=== PATIENT | male | born 1960 | race Caucasian/White ===

== ENCOUNTER 2020-02-15 07:51 | Day surgery (SDC) | payer MEDICARE ==
[~2020-02-15 07:51] MED LIST: ASPIRIN81 MG PO; CLOBAZAM20 MG PO; DEPAKOTE250 MG PO; KEPPRA XR500 MG PO; KEPPRA1000 MG PO; LANTUS100 UNIT/M SC; LEVOTHYROXIN88 MC1 PO; METO PO; PERCOCET 10/31 COMBO PO; PROTONIX40 M4 PO; ZOFRAN4 MG/TAB PO
[2020-02-15] MEDS ORDERED: NORCO1 TA2 PO (09:34)
[2020-02-15] MEDS ORDERED: CARAFATE1 GM PO (11:11)
[2020-02-15 11:22] VITALS: BP 94/61
== END 2020-02-15 11:40 | disposition home or self-care (01) ==
LOC: ENDO 07:51 → ORM 11:15 → ENDO 11:40
PROVIDERS: ATTEND Surgery
PROC: 0JPT3WZ Removal of Totally Implantable Vascular Access Device from Trunk Subcutaneous Tissue and Fascia, Percutaneous Approach (ICD-10-PCS; principal; 2020-02-15)
PROC: 02PY33Z Removal of Infusion Device from Great Vessel, Percutaneous Approach (ICD-10-PCS; 2020-02-15)
PROC: 0DJ08ZZ Inspection of Upper Intestinal Tract, Via Natural or Artificial Opening Endoscopic (ICD-10-PCS; 2020-02-15)
PROC: 0D2DXUZ Change Feeding Device in Lower Intestinal Tract, External Approach (ICD-10-PCS; 2020-02-15)
PROC: 0DJD8ZZ Inspection of Lower Intestinal Tract, Via Natural or Artificial Opening Endoscopic (ICD-10-PCS; 2020-02-15)
DX: K94.13 Enterostomy malfunction (principal); K31.84 Gastroparesis; D64.9 Anemia, unspecified; K25.4 Chronic or unspecified gastric ulcer with hemorrhage; K31.1 Adult hypertrophic pyloric stenosis; Z45.2 Encounter for adjustment and management of vascular access device; K86.1 Other chronic pancreatitis; G40.909 Epilepsy, unspecified, not intractable, without status epilepticus; Y83.3 Surgical operation with formation of external stoma as the cause of abnormal reaction of the patient, or of later complication, without mention of misadventure at the time of the procedure; Z85.46 Personal history of malignant neoplasm of prostate; Z87.891 Personal history of nicotine dependence; Z85.51 Personal history of malignant neoplasm of bladder; Z20.828 Contact with and (suspected) exposure to other viral communicable diseases
CPT/HCPCS: J0131

== ENCOUNTER 2020-10-10 06:46 | Day surgery (SDC) | payer MEDICARE ==
[~2020-10-10] VITALS: Ht 177.8 cm; Wt 83.5 kg
[~2020-10-10 06:46] MED LIST changes: +CARAFATE1 GM PO; +FIBER SELECT GUMMIES PO; +HYDROCODONE BIT1 TA7 PO; +IRON 100 PLUS PO; +LANTUS100 UNIT SC; -LANTUS100 UNIT/M SC; +NORCO1 TA2 PO; +[UNRECOGNIZED DRUG - OTHER] PO
[2020-10-10 08:52] VITALS: BP 108/64
== END 2020-10-10 09:06 | disposition home or self-care (01) ==
LOC: ENDO 06:46 → ORM 07:30 → ENDO 08:00
PROVIDERS: ATTEND Surgery
PROC: 0DBF8ZX Excision of Right Large Intestine, Via Natural or Artificial Opening Endoscopic, Diagnostic (ICD-10-PCS; principal; 2020-10-10)
PROC: 3E0H8KZ Introduction of Other Diagnostic Substance into Lower GI, Via Natural or Artificial Opening Endoscopic (ICD-10-PCS; 2020-10-10)
DX: K59.00 Constipation, unspecified (principal); D12.2 Benign neoplasm of ascending colon; K31.84 Gastroparesis; G40.909 Epilepsy, unspecified, not intractable, without status epilepticus; Z85.51 Personal history of malignant neoplasm of bladder; Z85.46 Personal history of malignant neoplasm of prostate; Z87.891 Personal history of nicotine dependence

== ENCOUNTER 2020-11-11 01:31 | Inpatient (IN) | payer MEDICARE ==
[~2020-11-11] VITALS: Ht 177.8 cm; Wt 84.0 kg
--- NOTE | 2020-11-11 01:31 | NUR ---
A/O M WITH ABD PAIN "ALL OVER" with quality of ' all you sais sharp dull,achy"
[2020-11-11 02:29] LABS: HEMATOCRIT 50.8 % (39.0-50.0); HEMOGLOBIN 16.7 g/dl (14.0-18.0); IMMATURE GRANULOCYTES 0.2 % (0.0-5.0); MEAN CORPUSCULAR HGB 28.9 pG CALC (26.0-32.0); MEAN CORPUSCULAR HGB CONC 32.9 g/dL CAL (32.0-36.0); NEUT# 13.29 thou/uL (1.82-7.42); RED BLOOD COUNT 5.77 mill/uL (4.70-6.10); RED CELL DISTRI WIDTH 15.8 % (11.5-15.5)
[2020-11-11 02:44] LABS: ALBUMIN 4.3 g/dL (3.2-5.0); ALKALINE PHOSPHATASE 260 u/l (38-126); AMYLASE 382 u/l (30-110); ANION GAP 16 (6-22 (CALC)); BILIRUBIN, TOTAL 0.4 mg/dL (0.0-1.4); BUN 28 mg/dL (8-23); BUN/CREATININE RATIO 25 (12-20 (CALC)); CARBON DIOXIDE 25 mmol/l (22-30); CHLORIDE 102 mmol/l (95-108); CREATININE 1.1 mg/dL (0.7-1.3); GFR > 60 ML/MIN (>=60 (CALC)); GFR FOR AFR.AMER. > 60 ML/MIN (>=60 (CALC)); POTASSIUM 4.4 mmol/l (3.5-5.1); SGOT/AST 40 u/l (19-48); SODIUM 138 mmol/l (137-146); TOTAL PROTEIN 7.9 g/dL (6.3-8.2)
--- NOTE | 2020-11-11 02:48 | NUR ---
PT IS DOZING AND IN NAD APPEARS COMFORTABEL W/P/D SKIN NO N/V
[2020-11-11 02:53] LABS: LIPASE 2363 u/l (23-300)
[2020-11-11] MEDS ORDERED: MIRALAX17 GM (02:54)
--- NOTE | 2020-11-11 03:55 | NUR ---
15F MARCIAL CAATH INSERTED AND 400CC CLOUDY YELLOW URINE DRAINS PT TOLERATED SPEC TO LAB
[2020-11-11 04:05] LABS: URINE BILIRUBIN - DIPSTICK NEGATIVE (NEGATIVE); URINE BLOOD DIPSTICK SMALL (NEGATIVE); URINE COLOR YELLOW; URINE GLUCOSE - DIPSTICK 500 mg/dL (NEGATIVE); URINE KETONE NEGATIVE (NEGATIVE); URINE UROBILINOGEN - DIPSTICK 0.2 E.U./dL (0.2)
[2020-11-11 04:09] LABS: URINE LEUK ESTERASE MODERATE (NEGATIVE); URINE NITRITE - DIPSTICK POSITIVE (Negative)
[2020-11-11 04:10] LABS: URINE PROTEIN - DIPSTICK NEGATIVE (NEG-TRACE); URINE WBC >100 WBC/hpf (0-5)
[2020-11-11 04:11] LABS: URINE BACTERIA MANY hpf; URINE EPITHELIAL CELLS MODERATE EPI/hpf (0-FEW)
--- NOTE | 2020-11-11 04:33 | NUR ---
PT REMEDICATED FOR CONTINUING ABD PAIN W/P;D SKIN NO N/V
--- NOTE | 2020-11-11 05:35 | NUR ---
W/P/D SKIN NO N/V NASAL SWAB SPEC COLLECTED.PT TOLERATED NO C/O PAIN
--- NOTE | 2020-11-11 06:55 | NUR ---
REPORT RECEIVED FROM KAYLA KNOWLES.
--- NOTE | 2020-11-11 08:05 | NUR ---
PT RESTING, AWAITING ADMISSION. STABLE ON MONITOR. AT BEDSIDE. ITEMS AND CALL LIGHT WITHIN REACH.
--- NOTE | 2020-11-11 08:28 | NUR ---
REPORT GIVEN TO KATHY ON MEDR.
--- NOTE | 2020-11-11 08:37 | NUR ---
PATIENT CAME FROM ER VIA STRECHTER BY AUGUST . MANAGER OF ORGANIZATIONAL DEVELOPMENT IN ROOM TO OBTAIN VS. CALL LIGHT IN REACH.
[2020-11-11 08:40] VITALS: BP 146/71
--- NOTE | 2020-11-11 11:50 | NUR ---
PATIENT IS RESTING IN BED. ASSESSMENT DONE. PATIENT IS ALERT AND ORIENT X3 BUT FORGETFUL AT TIMES. RESPS EVEN AND UNLABORED. PATIENT HAS A FEEDING TUBE. STATED THAT PATIENT TAKE MEDICATION BY MOUTH WITH SMALL SIPS OF WATER. SEIZURES PRECAUTIONS IN PLACE. IVF INFUSING WELL. MARCIAL IS PATIENT WITH YELLOW URINE. SAFETY PRECAUTIONS REINFORCED AND CALL LIGHT IN REACH.
[2020-11-11 15:08] VITALS: BP 135/72
--- NOTE | 2020-11-11 15:22 | NUR ---
PATIENT IS RESTING IN BED WITH NO DISTRESS NOTED. PATIENT DENIES NEEDS AT THIS TIME. CALL LIGHT IN REACH.
[2020-11-11 19:00] VITALS: BP 136/76
--- NOTE | 2020-11-11 19:41 | NUR ---
PT MEDICATED ORDERS PROVIDE. NO S/O DISTRESS AT THIS TIME. ASSESSMENT COMPLETED AT THIS TIME. PT C/O PAIN 8/10 ON PAIN SCALE AND MILD NAUSEA. PT HAS BEEN MEDICATED FOR PAIN, WILL MEDICATE WHEN ORDERS ALLOW. CALL LIGHT IS IN HAND AND PT ADVISED TO CALL NEEDS ARISE, VERBALIZED UNDERSTANDING.
--- NOTE | 2020-11-11 20:52 | NUR ---
PT MEDICATED ORDERS PROVIDE. HE WAS ABLE TO TAKE PO MEDICATIONS WITH MINIMAL SIPS OF WATER, STATES THAT IS HOW HE TAKES THEM AT HOME ALTHOUGH HE HAS PEG TUBE. PT TOLERATED SWALLOWING WELL. DENIES ANY OTHER NEEDS OF COMFORT MEASURES. INSTRUCTED HIM TO CALL ANY NEEDS ARISE, VERBALIZED UNDERSTANDING.
--- NOTE | 2020-11-11 21:36 | NUR ---
PHYS ORDERS WERE PLACED MAKING PT INPT WITH TELEMETRY. PT WAS NOT PREVIOUSLY PLACED ON TELE UPON ADMISSION. ED NOTIFIED OF NEED FOR EARTH SCIENCE PROFESSOR AND ONE WAS PLACED ON PT. THESE ORDERS WERE IN THE CHART UPON ADMISSION, BUT NO TELE HAD BEEN PLACED ON PT. INITIAL READING SB 53 PVC'S PER ED MONITOR.
[2020-11-11 23:39] VITALS: BP 134/75
[2020-11-12] VITALS (7 sets, daily range): BP systolic 117–146; BP diastolic 62–79
--- NOTE | 2020-11-12 01:10 | NUR ---
PT MEDICATED FOR NAUSEA AND PAIN AT THIS TIME. ASKING FOR ICE CHIPS.
--- NOTE | 2020-11-12 04:42 | NUR ---
PT CALLED ASKING FOR EMESIS BAGS, PROVIDED. HE STATES HE IS NAUSEOUS/COOL CLOTH PROVIDED ALSO AT THIS TIME.
--- NOTE | 2020-11-12 05:18 | NUR ---
PT ASKED FOR PAIN MEDICATION/PROVIDED FOR PAIN REPORTED AT 9/10 ON PAIN SCALE. PT AWAKE AND WATCHING TV CALMLY. ALSO ASKED FOR ADDITIONAL ICE CHIPS AT THIS TIME.
[2020-11-12 05:42] LABS: ANION GAP 11 (6-22 (CALC)); BUN 25 mg/dL (8-23); BUN/CREATININE RATIO 26 (12-20 (CALC)); CARBON DIOXIDE 26 mmol/l (22-30); CHLORIDE 111 mmol/l (95-108); GFR > 60 ML/MIN (>=60 (CALC)); GFR FOR AFR.AMER. > 60 ML/MIN (>=60 (CALC)); LIPASE 356 u/l (23-300); POTASSIUM 4.2 mmol/l (3.5-5.1); SODIUM 144 mmol/l (137-146)
[2020-11-12 05:57] LABS: HEMATOCRIT 46.7 % (39.0-50.0); MEAN CELL VOLUME 89.5 fL CALC (80.0-100.0); MEAN CORPUSCULAR HGB 28.7 pG CALC (26.0-32.0); MEAN CORPUSCULAR HGB CONC 32.1 g/dL CAL (32.0-36.0); RED BLOOD COUNT 5.22 mill/uL (4.70-6.10); RED CELL DISTRI WIDTH 16.2 % (11.5-15.5)
--- NOTE | 2020-11-12 08:00 | NUR ---
PT SLEEPING UPON ENTERING ROOM.PT VITALS AND ASSESSMENT DONE. PT IV HEALTHY AND PATENT. PT ALERT AND ORIENTED. S1 AND S2 HEARD. PT LUNG SOUNDS CLEAR. BOWEL SOUNDS ACTIVE IN ALL 4 QUADRANT. PT PEG TUBE INTACT AND HEALTHY APPERANCE. PT CURRENTLY NPO.
--- NOTE | 2020-11-12 09:54 | NUR ---
DR CASTAÑEDA AND Rozina JOLLY RADIAL DRILL OPERATOR AT BEDSIDE DISCUSSING POC
--- NOTE | 2020-11-12 09:55 | NUR ---
DR. CASTAÑEDA AND FELISA ZIMMERMAN AT BEDSIDE DISCUSSING POC.
--- NOTE | 2020-11-12 10:53 | NUR ---
PER Natalie VELAZQUEZ AGRICULTURAL COMMODITIES GRADER/UC PTS HR 120'S/AFIB RVR. PT NOT NOTED TO HAVE A HX OF AFIB, PER PT WHEN HE HAD A SURGERY HE HAD THE SAME "PROBLEM", THEY DID A WORK UP BUT WAS FOUND NOT TO BE IN AFIB, VERBAL ORDER OBTAINED FROM DR COVARRUBIAS FOR EKG FOR RHYTHM CHANGE. A VAL RT AT BEDSIDE OBTAINING EKG. VSS.
--- NOTE | 2020-11-12 11:11 | NUR ---
EKG GIVEN/SHOWN TO Rozina JOLLY APRN. ORDER PLACED FOR 5MG IV LOPRESSOR.
--- NOTE | 2020-11-12 11:58 | NUR ---
PER Natalie VELAZQUEZ LPN/UC PT HAS CONVERTED TO SR WITH A RATE OF 74 WITH A SECOND DOSE OF LOPRESSOR ADMINISTERED BY Jaz AMADO RN. PT VSS.
--- NOTE | 2020-11-12 12:32 | NUR ---
MICK VELAZQUEZ NURSE'S COMPANION/UC PT HAS SUSTAINED IN SR 73.
--- NOTE | 2020-11-12 13:47 | NUR ---
PT SLEEP UPON ENTERING ROOM. PT IS ALERT AND ORIENTED.VITALS AND ASSESSMENT DONE. S1 AND S2 HEARD. LUNGS CLEAR. PT BOWEL SIGNS ACTIVE IN ALL 4 QUADRANTS. IV PATENT AND HEALTHY. MARCIAL DRAINING VIA GRAVITY. PEG TUBE INTACT AND HAS HEALTHY APPERANCE. PT CURRENTLY NPO.
--- NOTE | 2020-11-12 16:47 | NUR ---
PT LAYING IN BED WATCHING TV. PAIN MEDICATION GIVEN. CALL LIGHT WITHIN REACH.
--- NOTE | 2020-11-12 19:25 | NUR ---
PT IN LOW FOWLERS WATCHING TV, C/O NAUSEA AND PAIN 11/10. PT HAS PREVIOUSLY BEEN MEDICATED FOR PAIN, WILL FOLLOW-UP WITH ORDERS THEY ALLOW AND REASSESS.
--- NOTE | 2020-11-12 20:45 | NUR ---
PT MEDICATED ORDERS PROVIDE FOR PAIN, NAUSEA AND PM MEDICATIONS. PT ASSISTED IN RESTROOM, MESH UNDERWEAR ON WITH PAD PROVIDED, PT REPORTS SMALL AMOUNT OF LEAKING FROM CATHETER WHEN PUSHING FOR STOOL OUTPUT. AND ASSISTED BACK TO THE BED. IVF RUNNING TO SITE IN RH/SITE APPEARS HEALTHY. PT DENIES ANY OTHER NEEDS AT THIS TIME.
--- NOTE | 2020-11-12 22:15 | NUR ---
PT CALLED TO REPORT IV HAD COME OUT. SITE CLEANED AND BANDAGED BY SANTHOSH AND OTHER FLOOR NURSE ON STAFF. SITE APPEARS HEALTHY AND CATHETER WAS REPORTED INTACT PER STAFF NURSE ASSISTING PT. HE IS NOW BACK IN BED WITHOUT COMPLAINTS.
--- NOTE | 2020-11-12 22:25 | NUR ---
NEW IV SITE ACCESSED, PT TOLERATED WELL. IVF RUNNING TO NEW SITE @125NS.
--- NOTE | 2020-11-13 00:21 | NUR ---
PT AWAKE WATCHING TV. DENIES ANY NEEDS AT THIS TIME.
--- NOTE | 2020-11-13 00:36 | NUR ---
PT CALLED TO ASK FOR PAIN MEDICATION, AND ZOFRAN FOR NAUSEA. HE IS ALSO ASKING FOR ICE CHIPS. I DISCUSSED WITH HIM RESTING THE STOMACH/NPO, HE VERBALIZED THAT HE UNDERSTOOD, BUT WOULD STILL LIKE SOME ICECHIPS.
--- NOTE | 2020-11-13 02:25 | NUR ---
IVPUMP SOUNDED AND IVF REPLENISHED AT THIS TIME. PT IS AWAKE AND ASKING FOR ICECHIPS. I DID REMIND PT AGAIN OF NPO STATUS AND EDUCATED ON TREATMENT FOR PANCREATITIS, VERBALIZED UNDERSTANDING, BUT STATED HE STILL WANTED ICECHIPS/PROVIDED SMALL AMOUNT.
[2020-11-13 03:30] VITALS: BP 114/67
--- NOTE | 2020-11-13 04:45 | NUR ---
PT MEDICATED FOR PAIN AND NAUSEA. ASKED FOR ICE CHIPS. DENIES ANY OTHER NEEDS.
[2020-11-13 05:00] LABS: HEMATOCRIT 44.5 % (39.0-50.0); MEAN CELL VOLUME 91.6 fL CALC (80.0-100.0); MEAN CORPUSCULAR HGB 28.8 pG CALC (26.0-32.0); MEAN CORPUSCULAR HGB CONC 31.5 g/dL CAL (32.0-36.0); RED BLOOD COUNT 4.86 mill/uL (4.70-6.10); RED CELL DISTRI WIDTH 16.3 % (11.5-15.5)
[2020-11-13 05:14] LABS: ANION GAP 9 (6-22 (CALC)); BUN 26 mg/dL (8-23); BUN/CREATININE RATIO 28 (12-20 (CALC)); CARBON DIOXIDE 24 mmol/l (22-30); CHLORIDE 113 mmol/l (95-108); CREATININE 0.9 mg/dL (0.7-1.3); GFR > 60 ML/MIN (>=60 (CALC)); GFR FOR AFR.AMER. > 60 ML/MIN (>=60 (CALC)); MAGNESIUM 1.9 mg/dL (1.6-2.3); POTASSIUM 3.7 mmol/l (3.5-5.1); SODIUM 142 mmol/l (137-146)
--- NOTE | 2020-11-13 06:26 | NUR ---
PATIENT ACCUCHECK WAS 78, NURSE WAS NOTIFIED.
--- NOTE | 2020-11-13 07:08 | NUR ---
PER Chaitanya KING RN/UC PTS HR 120-150'S.
[2020-11-13 07:10] VITALS: BP 119/82
--- NOTE | 2020-11-13 07:13 | NUR ---
UPON ASSESSMENT VSS; PER Chaitanya KING RN/UC PT ST BUT IN AND OUT OF AFIB. IV LOPRESSOR BEING ADMINISTERED AT THIS TIME BY Jaz AMADO RN.
--- NOTE | 2020-11-13 07:20 | NUR ---
PER Chaitanya KING RN/UC, PTS HR NOW IN THE 70'S AFTER THE ADMINISTRATION OF IV LOPRESSOR.
--- NOTE | 2020-11-13 07:36 | NUR ---
VERBAL ORDER OBTAINED FROM Rozina JOLLY APRN FOR LOPRESSOR 5MG IV X3 DOSES Q5MIN FOR HR SUSTAINING GREATER THAN 120. PER Natalie MOHR RN, PT SUSTAINING 130-140'S.
--- NOTE | 2020-11-13 07:40 | NUR ---
VSS STABLE; 2ND DOSE OF 5MG IV LOPRESSOR BEING ADMINISTERED AT THIS TIME BY Jaz AMADO RN
--- NOTE | 2020-11-13 07:46 | NUR ---
PER Chaitanya KING RN/UC PTS HR IN THE 90'S VS CONTINUE STABLE AT THIS TIME.
--- NOTE | 2020-11-13 08:05 | NUR ---
PT UP IN CHAIR. VITALS AND ASSESSMENT DONE. PTS VITALS WERE 119/82 WITH A HEART RATE OF 138. LOPRESSOR X2 ADMINISTERED. FIRST DOSE GIVEN 0714 AND THE SECOND WAS GIVEN 0739. AFTER THE SECOND DOSE PTS HR WAS IN THE 70'S -90'S. PT'S BOWEL SOUNDS ACTIVE IN ALL 4 QUADRANTS. PEDAL PULSES BILATERALLY EQUAL AND STRONG. IV PATENT AND HEALTHY. CALL LIGHT WITHIN REACH.
--- NOTE | 2020-11-13 08:13 | NUR ---
VERBAL ORDER OBTAINED FROM Rozina JOLLY APRN FOR EKG DUE TO RHYTHM CHANGE PER Chaitanya KING RN/JOSE MANUEL. Rozina ACEVEDO RT NOTIFIED. RT AT BEDSIDE OBTAINING EKG.
--- NOTE | 2020-11-13 08:42 | NUR ---
MANUAL RADIAL PULSE ASSESSED BY THIS ASSOCIATE SOFTWARE DEVELOPER, 58 BPM UPON ASSESSMENT WITH PAUSES NOTED; CORRELATING WITH BIGEMENY EKG RESULTS. D RIK EDWARD NOTIFIED.
--- NOTE | 2020-11-13 10:12 | NUR ---
DR. CASTAÑEDA AND Rozina JOLLY AT BEDSIDE DISCUSSING POC.
--- NOTE | 2020-11-13 10:32 | NUR ---
SPOKE WITH CHETNA, VERBAL ORDER REC FROM Rozina JOLLY APRN TO OBTAIN MEDICAL RECORDS FROM FIELD SERVICE TECH. PTS FIELD SERVICE TECH IS DR MIGDALIA NUNN LOCATED IN [place]. OFFICE PHONE NUMBER ; FAX NUMBER; .
--- NOTE | 2020-11-13 10:34 | NUR ---
OBTAINED CONSENT FROM PT FOR THE RELEASE OF MEDICAL RECORDS FROM HIS AUTOMATION MECHANIC.
[2020-11-13 11:01] VITALS: BP 118/69
--- NOTE | 2020-11-13 11:59 | NUR ---
PT STOMACH WAS DISTENDED. BLADDER SCAN SHOWED 999 ML OF URINE. MARCIAL CATHETER FLUSHED WITH 20 CC'S OF SALINE. SALINE WITH A TOTAL OF 40CC OF URINE JESENIA IN COLOR CONTAINING MUCUS PLUG REMOVED FROM MARCIAL. IMMEDIATE RELEASE OF PATIENT DISCOMFORT REPORTED. A TOTAL OF 900 CC'S OF URINE NOTED IN COLLECTION BAG. PRIOR TO FLUSH 150CC'S OF URINE IN COLLECTION BAG. IN TOTAL URINE OUTPUT 1050 CC'S. NO OTHER NEEDS FROM PT AT THIS TIME. CALL LIGHT LEFT WITHIN REACH.
[2020-11-13 14:57] VITALS: BP 117/69
--- NOTE | 2020-11-13 15:31 | NUR ---
ER CALLED PT'S HR WAS 140. PT IS STABLE AT THIS TIME. CALL LIGHT WITHIN REACH.
--- NOTE | 2020-11-13 16:00 | NUR ---
AFTER IV LOPRESSOR PT'S HR IS 104. PT IS STABLE. PT IS IN BED WITH CALL LIGHT WITHIN REACH. NO OTHER NEEDS AT THIS TIME.
[2020-11-13 19:00] VITALS: BP 114/73
--- NOTE | 2020-11-13 19:40 | NUR ---
PT AWAKE IN BED, REPORTS NOT FEELING VERY WELL THIS DAY, BUT BETTER THAN EARLIER IN THE DAY. 350CC OF DARK YELLOW URINE IS VISUALIZED IN MARCIAL CATHETER BAG AND TUBING CHECKED FOR PATENCY. INSERTION SITE INTACT. MARCIAL DRAINING TO GRAVITY, WILL CONTINUE TO MONITOR.
--- NOTE | 2020-11-13 22:10 | NUR ---
PT V/S ASSESSED, HR 118-130. MEDICATED WITH PO MEDICATIONS ORDERS PROVIDE. HE IS ASKING FOR PAIN MEDICATION, BUT IT IS TOO SOON TO PULL, VERBALIZED UNDERSTANDING. ACCU CHECK 91, PT ASKED FOR SMALL SIPS OF JUICE WITH HIS ICE CHIPS/PROVIDED FOR HIS SUGAR. DENIES ANY OTHER NEEDS AT THIS TIME.
--- NOTE | 2020-11-13 22:43 | NUR ---
PT MEDICATED FOR ELEVATED HR REPORTED BY ED 130-150 SUSTAINED. HE WAS ALSO MEDICATED WITH ZOFRAN AND FOR PAIN AT THIS TIME.
--- NOTE | 2020-11-13 23:32 | NUR ---
REDUCED URINE OUTPUT OBSERVED, PT BLADDER SCANNED 538, MARCIAL IRRIGATED WITH 30CC OF SALINE AND 500CC OUTPUT IMMEDIATELY. PT REPORTED THAT HE HAS DIFFICULTY DIFFERIENTIATING BETWEEN HIS "NORMAL PAIN" AND INCREASED BLADDER PRESSURE. WE DID ADVISE HIM TO LET US KNOW IF HE DOES NOTICE ANY INCREASE IN PRESSURE OF PAIN, VERBALIZED UNDERSTANDING.
--- NOTE | 2020-11-13 23:45 | NUR ---
BLADDER SCANNED AND MARCIAL IRRIGATED
--- NOTE | 2020-11-14 02:43 | NUR ---
PT MEDICATED FOR PAIN AT THIS TIME REPORTEDLY 9/10 ON PAIN SCALE IN ABD. MARCIAL CATH DRAINING PATENT TO GRAVITY. PT ASKED FOR ICECHIPS WITH SMALL AMOUNT OF JUICE OVER IT "TO MAINTAIN HIS SUGAR." WE DISCUSSED NPO STATUSE AND POC, PROVIDED REQUEST MADE BY PT.
--- NOTE | 2020-11-14 03:42 | NUR ---
ED CALLED TO REPORT HR SUSTAINED 145 ON BALL ASSEMBLER. S/S ASSESSED, PT MEDICATED WITH METOPROLOL ORDERS PROVIDE. PT WAS RELAXED AND SLEEPING, AWOKE TO MY VOICE I ENTERED THE ROOM. NO S/O DISTRESS. MARCIAL CATHETER APPEARS TO BE PATENT AND DRAINING TO GRAVITY WITH GOOD OUTPUT.
--- NOTE | 2020-11-14 05:01 | NUR ---
PT IS RESTIING WITH EYES CLOSED, LIGHTS AND TV ARE OFF. NO S/O DISTRESS, RESP ARE EVEN AND NON-LABORED. ED VESSEL WELDER REPORTS SR70'S ON TELEMETRY.
--- NOTE | 2020-11-14 06:40 | NUR ---
PATIENT S URINE OUTPUT DECREASED. IRRIGATED AGAIN WITH 30CC OF STERILE WATER. 700CC URINE OUTPUT. MEDICATED FOR PAIN AT THIS TIME.
--- NOTE | 2020-11-14 07:10 | NUR ---
REPORT RECEIVED FROM KAYLA BOO
[2020-11-14 07:51] LABS: HEMATOCRIT 44.5 % (39.0-50.0); HEMOGLOBIN 14.1 g/dl (14.0-18.0); MEAN CELL VOLUME 90.6 fL CALC (80.0-100.0); MEAN CORPUSCULAR HGB 28.7 pG CALC (26.0-32.0); MEAN CORPUSCULAR HGB CONC 31.7 g/dL CAL (32.0-36.0); RED BLOOD COUNT 4.91 mill/uL (4.70-6.10); RED CELL DISTRI WIDTH 15.7 % (11.5-15.5)
[2020-11-14 07:53] LABS: ANION GAP 11 (6-22 (CALC)); BUN 24 mg/dL (8-23); BUN/CREATININE RATIO 26 (12-20 (CALC)); CARBON DIOXIDE 21 mmol/l (22-30); CHLORIDE 111 mmol/l (95-108); CREATININE 0.9 mg/dL (0.7-1.3); GFR > 60 ML/MIN (>=60 (CALC)); GFR FOR AFR.AMER. > 60 ML/MIN (>=60 (CALC)); LIPASE 81 u/l (23-300); MAGNESIUM 1.7 mg/dL (1.6-2.3); POTASSIUM 3.8 mmol/l (3.5-5.1); SODIUM 139 mmol/l (137-146)
[2020-11-14 08:04] VITALS: BP 110/75
--- NOTE | 2020-11-14 08:05 | NUR ---
PT RESTING IN SEMI FOWLERS POSITION,A&O X3;VS OBTAINED AND ASSESSMENT COMPLETED;CURRENT HR 146, PT TO BE MEDICATED WITH ALL MORNING MEDICATIONS AND STAN ANRP NOTIFIED;PT REPORTS PAIN HAS DECREASED SINCE PRN DILAUDID ADMINISTRATION,PAIN SCALE AND REPORTING EDUCATED;RESPIRATIONS EVEN AND UNLABORED ON RA;ABDOMEN SOFT ON PALPATION AND ACTIVE IN ALL 4 QUADRANTS;STRONG PEDAL PULSES;SKIN INTACT;TELE MONITORING IN PLACE;#22G TO RH INFUSING NS @ 125ML/HR,SITE APPEARS HEALTHY;ACCUCHECK 123, NO COVERAGE NEEDED;SEIZURE PRECAUTIONS IN PLACE;NPO DIET REINFORCED;PT DENIES ANY ADDITIONAL NEEDS AND IS ENCOURAGED TO CALL FOR ASSISTANCE IF NEEDED;FALL PRECAUTIONS IN PLACE WITH BED IN THE LOWEST POSITION AND CALL LIGHT IN REACH;WILL CONTINUE TO MONITOR
--- NOTE | 2020-11-14 10:35 | NUR ---
CALL RECEIVED FROM KAYLA ROBLES/TELE WILLOW MACHINE TENDER REPORTING RHYTHM CHANGED TO AFIB/FLUTTER. STRIPS TO BE FAXED TO FLOOR PER KAYLA ROBLES. STAN AN NOTIFIED AND NO NEW ORDERS RECEIVED.WILL CONTINUE TO MONITOR
--- NOTE | 2020-11-14 10:48 | NUR ---
PT RESTING IN SEMI FOWLERS POSITION;RESPIRATIONS EVEN AND UNLABORED ON RA;PT REPORTS ABDOMINAL PAIN RATING 10/10 ON THE PAIN SCALE AND NAUSEA, PT MEDICATED WITH PRN ZOFRAN 4MG IVP AND DILAUDID 1MG SLOW IVP AT THIS TIME;MARCIAL CATHETER REMAINS PATENT DRAINING TO GRAVITY WITH EASE;ACCUCHECK 140, NO COVERAGE NEEDED AT THIS TIME;PT REMAINS NPO;PT DENIES ANY ADDITIONAL NEEDS AND IS ENCOURAGED TO CALL FOR ASSISTANCE IF NEEDED;FALL PRECAUTIONS IN PLACE WITH BED IN THE LOWEST POSITION AND CALL LIGHT IN REACH;WILL CONTINUE TO MONITOR
[2020-11-14 11:06] VITALS: BP 105/69
--- NOTE | 2020-11-14 12:00 | NUR ---
CONTINUOUS TUBE FEEDING INITIATED AT THIS TIME PER D.CARTEE ANRP ORDER;PEG TUB PATENT WITH 0 RESIDUAL NOTED;[place] PUMP SET FOR 50ML/HR WITH 60CC FLUSHED PER D.CARTEE ANRP;PT DENIES ANY ADDITIONAL NEEDS;WILL CONTINUE TO MONITOR
[2020-11-14 15:00] VITALS: BP 124/77
--- NOTE | 2020-11-14 15:27 | NUR ---
PT RESTING IN SEMI FOWLERS POSITION;RESPIRATIONS EVEN AND UNLABORED ON RA;PT REPORTS ABDOMINAL PAIN RATING 10/10 ON THE PAIN SCALE AND NAUSEA,PT MEDICATED WITH PRN DILAUDID 1MG SLOW IVP AND ZOFRAN PER ORDER;TELE MONITORING IN PLACE;IV SITE PATENT INFUSING NS WITH EASE PER ORDER;MARCIAL CATHETER DRAINING TO GRAVITY AND CONTINUES TUBE FEED INFUSING WITH EASE;ALL SAFETY PRECAUTIONS REMAIN IN PLACE WITH CALL LIGHT IN REACH;WILL CONTINUE TO MONITOR
[2020-11-14 19:11] VITALS: BP 111/74
--- NOTE | 2020-11-14 20:04 | NUR ---
PHYSICAL ASSESMENT COMPLETE. PT CURRENTLY DENIES PAIN OR DISCOMFORT. SCHEDULED MEDICATIONS AND PRN MEDICATION ADMINISTERED, SEE E-MAR. PT DENIES ANY NEEDS AT THIS TIME. PLAN OF CARE REVIEWED, PT DENIES QUESTIONS, VERBALIZES UNDERSTANDING. ITEMS WITHIN REACH, BED LOCKED IN LOW POSITION W/ BEDRAILS UP X2. CALL SOTOMAYOR WITHIN REACH, AGREES TO CALL PRN.
--- NOTE | 2020-11-14 21:00 | NUR ---
CONTINUOUS TUBE FEEDING SUSPEND FOR 4 HOURS PER PHYSICIAN ORDERS. TUBE IRRIGATED WITH 200 CC OF WATER. PT TOLERATED PROCEDURE WELL.
--- NOTE | 2020-11-14 23:45 | NUR ---
PT LAYING IN BED WITH EYES CLOSED, APPEARS TO BE SLEEPING, APPEARS COMFORTABLE AND IN NO DISTRESS. RESPIRATIONS REGULAR AND UNLABORED. ITEMS REMAIN WITHIN REACH, CALL SOTOMAYOR REMAINS WITHIN REACH. BED REMAINS LOCKED AND IN LOW POSITION WITH BEDRAILS UP X2. WILL CONTINUE TO MONITOR.
[2020-11-15 00:48] VITALS: BP 96/63
--- NOTE | 2020-11-15 04:12 | NUR ---
PT RESTING IN BED, NO SIGNS OF DISTRESS NOTED, RESP EVEN AND UNLABORED. PT VOICES NO NEEDS OR COMPLAINTS AT THIS TIME. CALL LIGHT IN REACH, CONTINUE TO MONITOR.
[2020-11-15 04:42] VITALS: BP 92/58
[2020-11-15 05:01] LABS: HEMOGLOBIN 12.9 g/dl (14.0-18.0); MEAN CELL VOLUME 90.5 fL CALC (80.0-100.0); MEAN CORPUSCULAR HGB 28.5 pG CALC (26.0-32.0); MEAN CORPUSCULAR HGB CONC 31.5 g/dL CAL (32.0-36.0); RED BLOOD COUNT 4.53 mill/uL (4.70-6.10); RED CELL DISTRI WIDTH 15.6 % (11.5-15.5)
[2020-11-15 05:15] LABS: ANION GAP 8 (6-22 (CALC)); BUN 19 mg/dL (8-23); BUN/CREATININE RATIO 21 (12-20 (CALC)); CARBON DIOXIDE 23 mmol/l (22-30); CHLORIDE 110 mmol/l (95-108); CREATININE 0.9 mg/dL (0.7-1.3); GFR > 60 ML/MIN (>=60 (CALC)); GFR FOR AFR.AMER. > 60 ML/MIN (>=60 (CALC)); MAGNESIUM 1.6 mg/dL (1.6-2.3); POTASSIUM 3.5 mmol/l (3.5-5.1); SODIUM 138 mmol/l (137-146)
--- NOTE | 2020-11-15 07:00 | NUR ---
SHIFT CHANGE REPORT, PT AWAKE ALERT AND ORIENTED LYING IN SUPINE POSITION, DENIES DISCOMFORT, IVF INFUSING, TELE MONITOR IN PLACE, FEEDING PUMP RUNNING AT A RATE OF 50ML/HR, MARCIAL IN PLACE WITH YELLOW CLOUDY URINE, CALL SOTOMAYOR IN REACH AND BED LOCKED IN LOWEST POSITION.
[2020-11-15 07:19] VITALS: BP 96/63
[2020-11-15 11:09] VITALS: BP 98/58
--- NOTE | 2020-11-15 12:35 | NUR ---
REPORT RECEIVED FROM KAYLA SANTOS
--- NOTE | 2020-11-15 13:44 | NUR ---
PT AMBULATING THE HALLWAY WITH A STEADY GAIT ASSISTED BY SPOUSE.
--- NOTE | 2020-11-15 15:04 | NUR ---
PT REPORTS ABDOMINAL PAIN AND NAUSEA AT THIS TIME, PT MEDICATED WITH PRN DILAUDID 1MG SLOW IVP AND ZOFRAN 4MG IV.WILL CONTINUE TO MONITOR FOR EFFECTIVENESS
--- NOTE | 2020-11-15 15:40 | NUR ---
PT RESTING IN SEMI FOWLERS POSITION;RESPIRATIONS EVEN AND UNLABORED ON RA;PT DENIES ANY CURRENT NEEDS;TELE MONITORING IN PLACE;IV SITE PATENT;MARCIAL CATHETER DRAINING TO GRAVITY WITH EASE;ALL SAFETY PRECAUTIONS REINFORCED WITH CALL LIGHT IN REACH;WILL CONTINUE TO MONITOR
[2020-11-15 16:00] VITALS: BP 100/61
--- NOTE | 2020-11-15 18:27 | NUR ---
AT 1000 BLADDER DISTENDED AND NO DRAINAGE FROM CATHETER, CATHETER IRRIGATED, SEDIMENTS/MUCUS EXTRACTED, CATHETER STARTED DRAINING FREELY AGAIN, PT HAD C/O DISCOMFORT TO LOWER ABD, DISCOMFORT RELIEVED.
[2020-11-15 19:29] VITALS: BP 99/63
--- NOTE | 2020-11-16 01:47 | NUR ---
PT LAYING IN BED WITH EYES CLOSED, APPEARS TO BE SLEEPING, APPEARS COMFORTABLE AND IN NO DISTRESS. PT MEDICATED FOR ABDOMINAL PAIN AT 2330. RESPIRATIONS REGULAR AND UNLABORED. ITEMS REMAIN WITHIN REACH, CALL SOTOMAYOR REMAINS WITHIN REACH. BED REMAINS LOCKED AND IN LOW POSITION WITH BEDRAILS UP X2. WILL CONTINUE TO MONITOR.
--- NOTE | 2020-11-16 02:02 | NUR ---
VERIFIED CONTINUOUS FLOW PEG TUBE FEEDING.
--- NOTE | 2020-11-16 04:13 | NUR ---
PT HELPED TO THE BATHROOM TO BE WASHED UP. MEDICATED FOR ABDOMINAL PAIN. PT RETURNED TO BED, NO SIGNS OF DISTRESS NOTED, RESP EVEN AND UNLABORED. PT VOICES NO NEEDS OR COMPLAINTS AT THIS TIME. CALL LIGHT IN REACH, CONTINUE TO MONITOR.
[2020-11-16 05:08] VITALS: BP 95/60
[2020-11-16 05:17] LABS: HEMATOCRIT 37.3 % (39.0-50.0); HEMOGLOBIN 12.1 g/dl (14.0-18.0); MEAN CELL VOLUME 89.4 fL CALC (80.0-100.0); MEAN CORPUSCULAR HGB CONC 32.4 g/dL CAL (32.0-36.0); RED BLOOD COUNT 4.17 mill/uL (4.70-6.10); RED CELL DISTRI WIDTH 15.4 % (11.5-15.5)
[2020-11-16 05:31] LABS: ANION GAP 9 (6-22 (CALC)); BILIRUBIN, TOTAL 0.4 mg/dL (0.0-1.4); BUN 14 mg/dL (8-23); BUN/CREATININE RATIO 16 (12-20 (CALC)); CARBON DIOXIDE 24 mmol/l (22-30); CHLORIDE 108 mmol/l (95-108); CREATININE 0.8 mg/dL (0.7-1.3); GFR > 60 ML/MIN (>=60 (CALC)); GFR FOR AFR.AMER. > 60 ML/MIN (>=60 (CALC)); LIPASE 73 u/l (23-300); MAGNESIUM 1.6 mg/dL (1.6-2.3); POTASSIUM 3.3 mmol/l (3.5-5.1); SGOT/AST 27 u/l (19-48); SODIUM 138 mmol/l (137-146)
[2020-11-16 05:32] LABS: ALBUMIN 2.5 g/dL (3.2-5.0); ALKALINE PHOSPHATASE 121 u/l (38-126); TOTAL PROTEIN 5.1 g/dL (6.3-8.2)
--- NOTE | 2020-11-16 07:00 | NUR ---
REPORT FROM GEORGIE GARZA. ASSUMED PT CARE.
[2020-11-16 07:40] VITALS: BP 110/70
--- NOTE | 2020-11-16 09:20 | NUR ---
MARCIAL CATHETER IRRIGATED WITH 30CC STERILE WATER, NO RESISTANCE NOTED. MARCIAL APPEARS PATENT PRIOR TO IRRIGATION. PT INISTANT THAT IT NEEDS TO BE FLUSHED. NO BLADDER DISTENTION NOTED. 550 OUTPUT NOTED SINCE 0600AM. EDUCATION PROVIDED. PT VERBALIZED UNDERSTANDING. CALL LIGHT WITHIN REACH. WILL CONTINUE TO MONITOR.
--- NOTE | 2020-11-16 09:45 | NUR ---
BLADDERED SCAN INDICATES GREATER THAN 900ML PRESENT IN BLADDER. MARCIAL CATHETER IRRIAGATED WITH 30ML NORMAL SALINE, TUBING REATTACHED. 750ML CLEAR YELLOW OUTPUT WITH APPARENT MUCUS NOTED. PT VERBALIZED RELIEF. MEDICATED FOR PAIN AND NAUSEA AT THIS TIME. CALL LIGHT WITHIN REACH. WILL CONTINUE TO MONITOR.
--- NOTE | 2020-11-16 10:23 | NUR ---
PHYSICIAN AT BEDSIDE TO DISCUSS POC.
[2020-11-16 11:13] VITALS: BP 105/65
--- NOTE | 2020-11-16 13:37 | NUR ---
AT BEDSIDE. PO DILAUDID ADMINISTERED THROUGH J-TUBE EFFECTIVE. PT REQUESTING TO BE DISCHARGED HOME TONIGHT. NOTIFIED SENIOR NETWORK ARCHITECT PHYSICIAN.
[2020-11-16 14:50] VITALS: BP 100/60
[2020-11-16] MEDS ORDERED: LOPRESSOR25 MG PO (15:52)
[2020-11-16] MEDS ORDERED: DILAUDID4 MG PO (15:58)
--- NOTE | 2020-11-16 16:30 | NUR ---
MARCIAL AND TELEMETRY REMOVED AT THIS TIME.
--- NOTE | 2020-11-16 16:38 | NUR ---
IV site discontinued, cath intact. No edema , no redness, voices no discomfort. Discharge instructions given. Patient verbalizes understanding of same. Discharged in stable condition via Wheelchair to Home with spouse. All belongings sent with pt. Home medications released and sent home from pharmacy.
== END 2020-11-16 16:38 | disposition home or self-care (01) | DRG 439 ==
LOC: ED 01:31 → ED-I 05:06 → ED 05:19 → MS2 05:20
PROVIDERS: Emergency Medicine; Nurse Practitioner; ADMIT Hospitalist; ATTEND Hospitalist
PROC: 0T9B70Z Drainage of Bladder with Drainage Device, Via Natural or Artificial Opening (ICD-10-PCS; principal; 2020-11-11)
DX: K85.90 Acute pancreatitis without necrosis or infection, unspecified (principal); N39.0 Urinary tract infection, site not specified; K86.1 Other chronic pancreatitis; I10 Essential (primary) hypertension; E11.9 Type 2 diabetes mellitus without complications; E03.9 Hypothyroidism, unspecified; I48.0 Paroxysmal atrial fibrillation; G52.2 Disorders of vagus nerve; G40.909 Epilepsy, unspecified, not intractable, without status epilepticus; R00.8 Other abnormalities of heart beat; G89.29 Other chronic pain; B96.1 Klebsiella pneumoniae [K. pneumoniae] as the cause of diseases classified elsewhere; Z93.4 Other artificial openings of gastrointestinal tract status; Z85.46 Personal history of malignant neoplasm of prostate; Z85.51 Personal history of malignant neoplasm of bladder; Z79.4 Long term (current) use of insulin; Z88.8 Allergy status to other drugs, medicaments and biological substances; Z20.822 Contact with and (suspected) exposure to COVID-19
CPT/HCPCS: J3475; Q9967; S0164

== ENCOUNTER 2020-12-02 14:02 | Emergency (ER) | payer MEDICARE ==
[~2020-12-02] VITALS: Ht 177.8 cm; Wt 83.0 kg
[~2020-12-02 14:02] MED LIST changes: +DILAUDID4 MG PO; +LOPRESSOR25 MG PO; +MIRALAX17 GM
[2020-12-02 15:02] LABS: HEMOGLOBIN 14.9 g/dl (14.0-18.0); IMMATURE GRANULOCYTES 0.5 % (0.0-5.0); MEAN CORPUSCULAR HGB 27.9 pG CALC (26.0-32.0); MEAN CORPUSCULAR HGB CONC 32.4 g/dL CAL (32.0-36.0); NEUT# 7.21 thou/uL (1.82-7.42); RED BLOOD COUNT 5.35 mill/uL (4.70-6.10); RED CELL DISTRI WIDTH 15.5 % (11.5-15.5)
[2020-12-02 15:27] LABS: URINE BILIRUBIN - DIPSTICK NEGATIVE (NEGATIVE); URINE BLOOD DIPSTICK TRACE-INTACT (NEGATIVE); URINE COLOR YELLOW; URINE GLUCOSE - DIPSTICK NEGATIVE (NEGATIVE); URINE KETONE NEGATIVE (NEGATIVE); URINE LEUK ESTERASE TRACE (NEGATIVE); URINE PROTEIN - DIPSTICK NEGATIVE (NEG-TRACE); URINE UROBILINOGEN - DIPSTICK 0.2 E.U./dL (0.2)
[2020-12-02 15:29] LABS: URINE NITRITE - DIPSTICK NEGATIVE (Negative)
[2020-12-02 15:53] LABS: ALKALINE PHOSPHATASE 151 u/l (38-126); AMYLASE 47 u/l (30-110); BILIRUBIN, TOTAL 0.7 mg/dL (0.0-1.4); BUN 27 mg/dL (8-23); BUN/CREATININE RATIO 22 (12-20 (CALC)); CARBON DIOXIDE 22 mmol/l (22-30); CHLORIDE 100 mmol/l (95-108); CREATININE 1.2 mg/dL (0.7-1.3); GFR > 60 ML/MIN (>=60 (CALC)); GFR FOR AFR.AMER. > 60 ML/MIN (>=60 (CALC)); LIPASE 73 u/l (23-300); MAGNESIUM 1.5 mg/dL (1.6-2.3); SGOT/AST 53 u/l (19-48); SODIUM 128 mmol/l (137-146); TOTAL PROTEIN 5.8 g/dL (6.3-8.2)
[2020-12-02 15:55] LABS: ALBUMIN 2.7 g/dL (3.2-5.0); ANION GAP 10 (6-22 (CALC)); POTASSIUM 3.9 mmol/l (3.5-5.1)
[2020-12-02 18:14] VITALS: BP 147/58
== END 2020-12-02 18:39 | disposition home or self-care (01) ==
LOC: ED 14:02
DX: E86.0 Dehydration (principal); E11.9 Type 2 diabetes mellitus without complications; Z79.4 Long term (current) use of insulin; Z20.822 Contact with and (suspected) exposure to COVID-19
CPT/HCPCS: Q9967

== ENCOUNTER 2021-09-16 15:57 | Emergency (ER) | payer MEDICARE ==
[~2021-09-16] VITALS: Ht 177.8 cm; Wt 75.2 kg
[2021-09-16 16:30] VITALS: BP 114/72
[2021-09-16 17:00] VITALS: BP 100/69
[2021-09-16 17:30] VITALS: BP 98/70
[2021-09-16 18:00] VITALS: BP 108/64
== END 2021-09-16 18:08 | disposition home or self-care (01) ==
LOC: ED 15:57
PROC: 0DH67UZ Insertion of Feeding Device into Stomach, Via Natural or Artificial Opening (ICD-10-PCS; principal; 2021-09-16)
DX: Z43.1 Encounter for attention to gastrostomy (principal); E11.9 Type 2 diabetes mellitus without complications; Z79.4 Long term (current) use of insulin

== ENCOUNTER 2021-10-01 12:06 | Emergency (ER) | payer MEDICARE ==
[2021-10-01] VITALS (9 sets, daily range): BP systolic 95–120; BP diastolic 61–77
[~2021-10-01] VITALS: Ht 177.8 cm; Wt 75.4 kg
== END 2021-10-01 15:41 | disposition home or self-care (01) ==
LOC: ED 12:06
PROC: 0D2DXUZ Change Feeding Device in Lower Intestinal Tract, External Approach (ICD-10-PCS; principal; 2021-10-01)
DX: K94.13 Enterostomy malfunction (principal); E11.9 Type 2 diabetes mellitus without complications; Y83.3 Surgical operation with formation of external stoma as the cause of abnormal reaction of the patient, or of later complication, without mention of misadventure at the time of the procedure; Z79.4 Long term (current) use of insulin

== ENCOUNTER 2022-09-18 08:33 | Emergency (ER) | payer MEDICARE ==
[~2022-09-18] VITALS: Ht 177.8 cm; Wt 66.7 kg
[2022-09-18 08:51] VITALS: BP 100/56
[2022-09-18 09:00] VITALS: BP 88/58
[2022-09-18 09:30] VITALS: BP 94/63
[2022-09-18 09:58] VITALS: BP 94/63
== END 2022-09-18 10:06 | disposition home or self-care (01) ==
LOC: ED 08:33
PROC: 0D2DXUZ Change Feeding Device in Lower Intestinal Tract, External Approach (ICD-10-PCS; principal; 2022-09-18)
DX: Z43.4 Encounter for attention to other artificial openings of digestive tract (principal); E11.9 Type 2 diabetes mellitus without complications; Z79.4 Long term (current) use of insulin

== ENCOUNTER 2023-02-09 08:31 | Emergency (ER) | payer MEDICARE ==
[~2023-02-09] VITALS: Ht 177.8 cm; Wt 63.9 kg
[2023-02-09] VITALS (17 sets, daily range): BP systolic 84–101; BP diastolic 52–67
[2023-02-09 11:19] LABS: BASO% 0.4 % (0-3); EOS% 0.2 % (0-8); HEMATOCRIT 44.2 % (39.0-50.0); HEMOGLOBIN 13.9 g/dl (14.0-18.0); IMMATURE GRANULOCYTES 0.1 % (0.0-5.0); LYMPH% 28.6 % (15-41); MEAN CELL VOLUME 89.3 fL CALC (80.0-100.0); MEAN CORPUSCULAR HGB 28.1 pG CALC (26.0-32.0); MEAN CORPUSCULAR HGB CONC 31.4 g/dL CAL (32.0-36.0); MONO% 6.6 % (2-13); NEUT# 5.41 thou/uL (1.82-7.42); NEUT% 64.1 % (42-76); RED BLOOD COUNT 4.95 mill/uL (4.70-6.10); RED CELL DISTRI WIDTH 16.6 % (11.5-15.5)
[2023-02-09 11:35] LABS: ALBUMIN 3.3 g/dL (3.2-5.0); ALKALINE PHOSPHATASE 141 u/l (38-126); ANION GAP 9 (6-22 (CALC)); BILIRUBIN, TOTAL 0.3 mg/dL (0.2-1.3); BUN 33 mg/dL (8-23); BUN/CREATININE RATIO 28 (12-20 (CALC)); CARBON DIOXIDE 31 mmol/l (22-30); CHLORIDE 106 mmol/l (95-108); CREATININE 1.2 mg/dL (0.7-1.3); GFR FOR AFR.AMER. > 60 ML/MIN (>=60 (CALC)); GFR OTHER RACES > 60 ML/MIN (>=60 (CALC)); POTASSIUM 5.1 mmol/l (3.5-5.1); SGOT/AST 35 u/l (19-48); SODIUM 141 mmol/l (137-146); TOTAL PROTEIN 6.1 g/dL (6.3-8.2)
== END 2023-02-09 12:46 ==
LOC: ED 08:31
PROVIDERS: Family Medicine
PROC: 0DHA7UZ Insertion of Feeding Device into Jejunum, Via Natural or Artificial Opening (ICD-10-PCS; principal; 2023-02-09)
DX: K94.23 Gastrostomy malfunction (principal); E11.9 Type 2 diabetes mellitus without complications; Y83.3 Surgical operation with formation of external stoma as the cause of abnormal reaction of the patient, or of later complication, without mention of misadventure at the time of the procedure; Z79.4 Long term (current) use of insulin